=== PATIENT | female | born 1970 | race Hispanic/Latino ===

== ENCOUNTER → 2019-10-24 | Outpatient (CLI) | payer BC, OTHER | END | disposition home or self-care (01) | LOC: RAH 15:29 | PROVIDERS: ATTEND Physician Assistant Medical | DX: Z12.31 Encounter for screening mammogram for malignant neoplasm of breast (principal) | CPT/HCPCS: 77067 ==

== ENCOUNTER 2020-04-30 16:47 | Inpatient (IN) | payer BC, OTHER ==
[~2020-04-30] VITALS: Ht 162.6 cm; Wt 59.5 kg
[2020-04-30] MEDS ORDERED: METHYLPREDNISOLONE SOD SUCC 125MG/2ML VIAL ONE (17:03)
[2020-04-30] MEDS ORDERED: ACYCLOVIR 200 MG CAPSULE ONE (17:03)
[2020-04-30 17:07] LABS: BASOPHILS % (AUTO) 0.2 % (0.0-5.0); EOSINOPHILS % (AUTO) 0.5 % (0.0-8.0); HEMATOCRIT 45.6 % (36-48); LYMPHOCYTES % (AUTO) 30.4 % (21.0-51.0); MEAN CORPUSCULAR HEMOGLOBIN 30.8 pg (27.0-33.0); MEAN CORPUSCULAR HGB CONC 34.4 g/dL (32.0-36.0); MEAN CORPUSCULAR VOLUME 89.4 fL (79-99); MONOCYTES % (AUTO) 5.1 % (3.0-13.0); NEUTROPHILS % (AUTO) 63.6 % (40.0-77.0); PLATELET COUNT (AUTO) 370 K/uL (130-400); RED CELL DISTRIBUTION WIDTH 11.8 % (11.0-15.5); WHITE BLOOD COUNT (AUTO) 9.9 K/uL (4.8-10.8)
[2020-04-30 17:20] LABS: INR 0.96 (0.85-1.15); PROTHROMBIN TIME 10.4 SEC (9.6-11.6)
[2020-04-30 17:32] LABS: CREATININE 0.6 mg/dL (0.5-1.5); POTASSIUM 3.9 mmol/L (3.5-5.1)
[2020-04-30 17:37] LABS: ALBUMIN 3.9 g/dL (3.5-5.0); BILIRUBIN,TOTAL 0.4 mg/dL (0.2-1.0); TOTAL PROTEIN, SERUM 8.2 g/dL (6.0-8.3)
[2020-04-30 18:07] LABS: APPEARANCE,URINE Clear (CLEAR); BILIRUBIN,URINE Negative (NEGATIVE); COLOR,URINE Yellow (YELLOW); GLUCOSE, URINE (UA) Negative (NEGATIVE); KETONES,URINE Negative (NEGATIVE); LEUKOCYTE ESTERASE ,URINE Negative (NEGATIVE); NITRATE,URINE Negative (NEGATIVE); OCCULT BLOOD,URINE Negative (NEGATIVE); PROTEIN,URINE Negative (NEGATIVE); UROBILINOGEN,URINE 0.2 mg/dL (0.2-1.0)
[2020-04-30 18:17] LABS: AMPHET/METH SCREEN,URINE NEGATIVE (NEGATIVE); BARBITURATE SCREEN, URINE NEGATIVE (NEGATIVE); BENZODIAZEPINES SCREEN,URINE NEGATIVE (NEGATIVE); CANNABINOID SCREEN,URINE NEGATIVE (NEGATIVE); COCAINE SCREEN,URINE NEGATIVE (NEGATIVE); OPIATE SCREEN,URINE NEGATIVE (NEGATIVE); PHENCYCLIDINE SCREEN,URINE NEGATIVE (NEGATIVE)
[2020-05-01] MEDS ORDERED: ONDANSETRON HCL 4 MG/2 ML VIAL IV PRN (05:15)
[2020-05-01] MEDS ORDERED: MORPHINE SULFATE 2 MG/ML 1ML SYG IV PRN (05:15)
[2020-05-01] MEDS ORDERED: ACETAMINOPHEN 325 MG TAB PO PRN ×2 (05:15)
[2020-05-01 05:59] LABS: BASOPHILS % (AUTO) 0.2 % (0.0-5.0); EOSINOPHILS % (AUTO) 0.1 % (0.0-8.0); HEMATOCRIT 44.2 % (36-48); LYMPHOCYTES % (AUTO) 15.2 % (21.0-51.0); MEAN CORPUSCULAR HEMOGLOBIN 30.9 pg (27.0-33.0); MEAN CORPUSCULAR HGB CONC 34.8 g/dL (32.0-36.0); MEAN CORPUSCULAR VOLUME 88.8 fL (79-99); MONOCYTES % (AUTO) 2.5 % (3.0-13.0); NEUTROPHILS % (AUTO) 81.8 % (40.0-77.0); PLATELET COUNT (AUTO) 387 K/uL (130-400); RED BLOOD CELL COUNT(AUTO) 4.98 MIL/uL (4.00-5.50); RED CELL DISTRIBUTION WIDTH 11.8 % (11.0-15.5); WHITE BLOOD COUNT (AUTO) 11.2 K/uL (4.8-10.8)
[2020-05-01 06:24] LABS: ALBUMIN 3.8 g/dL (3.5-5.0); BILIRUBIN,TOTAL 0.3 mg/dL (0.2-1.0); CREATININE 0.4 mg/dL (0.5-1.5); THYROID STIMULATING HORMONE 0.42 uIU/mL (0.36-3.74); TOTAL PROTEIN, SERUM 7.8 g/dL (6.0-8.3)
[2020-05-01] MEDS ORDERED: ASPIRIN 81MG TAB.CHEW ONE (08:12)
[2020-05-01] MEDS ORDERED: FAMOTIDINE/PF 20 MG/2 ML VIAL IV ONE (08:13)
[2020-05-01] MEDS ORDERED: ATORVASTATIN CALCIUM 20 MG TABLET ONE (08:13)
[2020-05-01] MEDS ORDERED: CLOPIDOGREL BISULFATE 75 MG TAB ONE (08:13)
[2020-05-01] MEDS: ASPIRIN 81MG TAB.CHEW PO SCH (09:00)
[2020-05-01] MEDS: CLOPIDOGREL BISULFATE 75 MG TAB PO SCH (09:00)
[2020-05-01] MEDS: ATORVASTATIN CALCIUM 10 MG TABLET PO SCH (09:00)
[2020-05-01] MEDS: FAMOTIDINE/PF 20 MG/2 ML VIAL IV SCH ×2 (09:00→20:10)
[2020-05-01] MEDS ORDERED: GADODIAMIDE 10 MMOL/20 ML VIAL IV ONE (11:17)
[2020-05-01 19:40] VITALS: BP 128/77
[2020-05-02 00:11] VITALS: BP 110/75
[2020-05-02 03:23] VITALS: BP 134/77
[2020-05-02] MEDS: CLOPIDOGREL BISULFATE 75 MG TAB PO SCH (09:00)
[2020-05-02 09:03] VITALS: BP 116/69
[2020-05-02] MEDS: ATORVASTATIN CALCIUM 10 MG TABLET PO SCH (09:52)
[2020-05-02] MEDS: ASPIRIN 81MG TAB.CHEW PO SCH (09:52)
[2020-05-02] MEDS: FAMOTIDINE/PF 20 MG/2 ML VIAL IV SCH ×2 (09:52→19:34)
[2020-05-02 12:55] VITALS: BP 113/73
[2020-05-02 19:49] VITALS: BP 138/91
[2020-05-02 23:51] VITALS: BP 126/83
[2020-05-03 03:56] LABS: BASOPHILS % (AUTO) 0.3 % (0.0-5.0); EOSINOPHILS % (AUTO) 0.4 % (0.0-8.0); HEMATOCRIT 45.6 % (36-48); LYMPHOCYTES % (AUTO) 41.5 % (21.0-51.0); MEAN CORPUSCULAR HEMOGLOBIN 31.2 pg (27.0-33.0); MEAN CORPUSCULAR HGB CONC 34.6 g/dL (32.0-36.0); MEAN CORPUSCULAR VOLUME 89.9 fL (79-99); NEUTROPHILS % (AUTO) 50.5 % (40.0-77.0); PLATELET COUNT (AUTO) 379 K/uL (130-400); RED BLOOD CELL COUNT(AUTO) 5.07 MIL/uL (4.00-5.50); RED CELL DISTRIBUTION WIDTH 11.9 % (11.0-15.5); WHITE BLOOD COUNT (AUTO) 7.5 K/uL (4.8-10.8)
[2020-05-03 04:11] VITALS: BP 130/78
[2020-05-03 04:22] LABS: CREATININE 0.6 mg/dL (0.5-1.5); CRP QUANTITATIVE 7.1 mg/L (0.00-9.0); POTASSIUM 3.7 mmol/L (3.5-5.1)
[2020-05-03 05:03] LABS: ERYTHROCYTE SEDIMENTATION RATE 2 MM/HR (0-20)
[2020-05-03 08:00] VITALS: BP 125/51
[2020-05-03] MEDS: FAMOTIDINE/PF 20 MG/2 ML VIAL IV SCH ×2 (09:06→21:41)
[2020-05-03] MEDS: ASPIRIN 81MG TAB.CHEW PO SCH (09:07)
[2020-05-03] MEDS: ATORVASTATIN CALCIUM 10 MG TABLET PO SCH (09:07)
[2020-05-03] MEDS: CLOPIDOGREL BISULFATE 75 MG TAB PO SCH (09:07)
[2020-05-03 11:00] VITALS: BP 122/85
[2020-05-03] MEDS: DOXYCYCLINE 100MG+NS 250ML 250 ML IV SCH (12:46)
[2020-05-03 16:00] VITALS: BP 134/76
[2020-05-03 20:00] VITALS: BP 133/79
[2020-05-04] VITALS (7 sets, daily range): BP systolic 134–146; BP diastolic 72–82
[2020-05-04] MEDS: DOXYCYCLINE 100MG+NS 250ML 250 ML IV SCH ×2 (01:24→12:51)
[2020-05-04] MEDS ORDERED: PHARMACY COMMUNICATION MISC SCH ×2 (03:15→06:00)
[2020-05-04] MEDS ORDERED: MEDROL DAY 1 BREAKFAST PO NR (07:30)
[2020-05-04] MEDS: ACYCLOVIR 200 MG CAPSULE PO SCH ×5 (07:47→23:14)
[2020-05-04 08:06] LABS: RAPID PLASMA REAGIN NONREACTIVE (NONREACTIVE)
[2020-05-04] MEDS: FAMOTIDINE/PF 20 MG/2 ML VIAL IV SCH ×2 (08:34→20:30)
[2020-05-04] MEDS: ATORVASTATIN CALCIUM 10 MG TABLET PO SCH (08:34)
[2020-05-04] MEDS: ASPIRIN 81MG TAB.CHEW PO SCH (08:35)
[2020-05-04] MEDS: MEDROL DAY 1 LUNCH AND DINNER PO NR ×2 (11:29→16:54)
[2020-05-04] MEDS ORDERED: MEDROL DAY1 HS PO NR (21:00)
[2020-05-05 03:41] VITALS: BP 132/91
[2020-05-05] MEDS: ACYCLOVIR 200 MG CAPSULE PO SCH ×3 (06:56→14:55)
[2020-05-05] MEDS: DOXYCYCLINE 100MG+NS 250ML 250 ML IV SCH ×2 (07:04→12:46)
[2020-05-05] MEDS ORDERED: MEDROL DAY 2 BRK PO NR (07:30)
[2020-05-05 08:00] VITALS: BP 132/73
[2020-05-05] MEDS: ATORVASTATIN CALCIUM 10 MG TABLET PO SCH (09:22)
[2020-05-05] MEDS: ASPIRIN 81MG TAB.CHEW PO SCH (09:22)
[2020-05-05] MEDS: FAMOTIDINE/PF 20 MG/2 ML VIAL IV SCH (09:22)
[2020-05-05] MEDS ORDERED: MEDROL DAY 2 LCH PO NR (11:30)
[2020-05-05 12:00] VITALS: BP 132/76
[2020-05-05 16:00] VITALS: BP 134/80
[2020-05-05] MEDS ORDERED: MEDROL DAY 2 DIN PO NR (16:30)
[2020-05-05] MEDS ORDERED: DOXYCYCLINE 100MG+NS 250ML 250 ML IV SCH (18:00)
[2020-05-05] MEDS ORDERED: MEDROL DAY 2 HS PO NR (21:00)
[2020-05-06] MEDS ORDERED: MEDROL DAY 3 PO NR (07:30)
[2020-05-07] MEDS ORDERED: MEDROL DAY 4 BKF PO NR (07:30)
[2020-05-07] MEDS ORDERED: MEDROL DAY 4 LCH PO NR (11:30)
[2020-05-07] MEDS ORDERED: MEDROL DAY 4 DIN PO NR (16:30)
[2020-05-08] MEDS ORDERED: MEDROL DAY 5 BKF PO NR (07:30)
[2020-05-08] MEDS ORDERED: MEDROL DAY 5 HS PO NR (21:00)
[2020-05-09] MEDS ORDERED: MEDROL DAY 6 PO NR (07:30)
== END 2020-05-05 19:55 | disposition short-term general hospital (02) | DRG 58 ==
LOC: EDH 16:47 → EDHIP 05-01 05:02 → 4AH 05-01 19:51 → 3BH 05-03 06:15
PROVIDERS: ADMIT Internal Medicine; ATTEND Internal Medicine
DX: G35 Multiple sclerosis (principal); U07.1 COVID-19; G51.0 Bell's palsy; G83.11 Monoplegia of lower limb affecting right dominant side; Z74.01 Bed confinement status; R47.1 Dysarthria and anarthria; R53.81 Other malaise
CPT/HCPCS: 36415; 70450; 70551; 70553; 72141; 72148; 80048; 80053; 80061; 80305; 81003; 82550; 84145; 84443; 84484; 85025; 85610; 85651; 85730; 86038; 86140; 86215; 86235; 86431; 86592; 86618; 86701; 87390; 87426; 92507; 92522; 92610; 97039; A9579; G0378; J2930; J3490; J7509; U0003